=== PATIENT | male | born 1990 | race African-American/Black ===

== ENCOUNTER 2020-08-19 18:50 | Emergency (ER) | payer OTHER ==
[~2020-08-19] VITALS: Ht 167.6 cm; Wt 49.9 kg
[2020-08-19] MEDS ORDERED: VANCOMYCIN 1GM/NS 250 ML 250 ML IV STA (19:21)
[2020-08-19] MEDS ORDERED: CEFEPIME 1GM/NS 0.9% 50 ML 50 ML IV SCH (19:30)
[2020-08-19] MEDS ORDERED: SODIUM CHLORIDE 0.9% 1000ML 1,000 ML IV SCH (19:30)
[2020-08-19 21:08] LABS: BASOPHILS % 0.5 % (0.0-1.0); EOSINOPHILS # (AUTO) 0.5 (0.0-0.4); EOSINOPHILS % 5.5 % (0.0-6.0); HEMOGLOBIN 9.9 g/dL (14.0-18.0); LYMPHOCYTES # (AUTO) 2.6 (1.0-3.2); LYMPHOCYTES % 31.1 % (18.0-39.1); MEAN CORPUSCULAR HEMOGLOBIN 27.3 pg (28-32); MEAN CORPUSCULAR HGB CONC 30.9 g/dL (31-35); MEAN CORPUSCULAR VOLUME 88.2 fL (81-99); MONOCYTES % 11.9 % (4.4-11.3); NEUTROPHILS # (AUTO) 4.1 (2.1-6.9); NEUTROPHILS % 49.8 % (38.7-80.0); PLATELET COUNT 479 x10e3/uL (140-360); RED BLOOD COUNT 3.63 x10e6/uL (4.3-5.7); RED CELL DISTRIBUTION WIDTH 15.3 % (11.7-14.4)
[2020-08-19 21:27] LABS: ALANINE AMINOTRANSFERASE 28 IU/L (0-55); ALBUMIN 1.8 g/dL (3.5-5.0); ALBUMIN/GLOBULIN RATIO 0.3 (0.8-2.0); ALKALINE PHOSPHATASE 194 IU/L (40-150); ANION GAP 16.4 mmol/L (8-16); BLOOD UREA NITROGEN 24 mg/dL (7-26); BUN/CREATININE RATIO 47 (6-25); CALCIUM 9.3 mg/dL (8.4-10.2); CARBON DIOXIDE 28 mmol/L (22-29); CHLORIDE 99 mmol/L (98-107); CREATINE KINASE 210 IU/L (30-200); CREATININE, SERUM 0.51 mg/dL (0.72-1.25); EST GLOMERULAR FILTRATION RATE > 60 ML/MIN (60-); GLUCOSE 86 mg/dL (74-118); POTASSIUM 4.4 mmol/L (3.5-5.1); SODIUM 139 mmol/L (136-145)
[2020-08-19] MEDS ORDERED: SODIUM CHLORIDE 0.9% 1000ML 1,000 ML IV ONE (21:45)
[2020-08-19] MEDS ORDERED: VANCOMYCIN 1GM/NS 250 ML 250 ML ONE (23:39)
[2020-08-20] MEDS ORDERED: LEVOFLOXACIN250 MG PO (00:47)
[2020-08-20 01:54] VITALS: BP 105/69
== END 2020-08-20 02:12 ==
LOC: ER 20:28
DX: L89.224 Pressure ulcer of left hip, stage 4 (principal); L89.150 Pressure ulcer of sacral region, unstageable; L89.110 Pressure ulcer of right upper back, unstageable; L89.210 Pressure ulcer of right hip, unstageable; M24.59 Contracture, other specified joint; Z87.820 Personal history of traumatic brain injury; E11.9 Type 2 diabetes mellitus without complications; I10 Essential (primary) hypertension; Z93.1 Gastrostomy status; Z93.0 Tracheostomy status; B37.0 Candidal stomatitis
CPT/HCPCS: 36415; 71045; 80053; 82550; 82553; 83605; 84484; 85025; 87040; 99284; J0692; J3370; J7030